=== PATIENT | male | born 1960 | race Caucasian/White ===

== ENCOUNTER 2017-05-07 19:14 | Emergency (ER) | payer BC ==
[2017-05-08 00:16] VITALS: BP 137/86
[2017-05-09] MEDS ORDERED: MOT600 GT (00:14)
[2017-05-09] MEDS ORDERED: VALIUM2 MG (00:14)
== END 2017-05-08 00:16 | disposition home or self-care (01) ==
LOC: ED 19:14
DX: M54.5 Low back pain (principal); E11.9 Type 2 diabetes mellitus without complications
CPT/HCPCS: J1885

== ENCOUNTER 2017-05-08 16:23 | Inpatient (IN) | payer BC ==
[~2017-05-08] VITALS: Ht 177.8 cm; Wt 111.1 kg
[2017-05-09] VITALS (7 sets, daily range): BP systolic 122–158; BP diastolic 66–84
[2017-05-09] MEDS ORDERED: MOT600 GT (00:14)
[2017-05-09] MEDS ORDERED: VALIUM2 MG (00:14)
[2017-05-09 00:48] LABS: MAGNESIUM 2.1 mg/dL (1.8-2.4); PHOSPHOROUS 4.2 mg/dL (2.5-4.9); T3 TOTAL 1.52 ng/mL
[2017-05-09 00:52] LABS: BASOPHIL % 0.3 % (0-2); PLATELET COUNT 245 x10^3mcL (130-400); RED CELL DISTRIBUTION WIDTH 13.9 % (11.5-14.5)
[2017-05-09 00:57] LABS: CHOLESTEROL/HDL RATIO 5.6; FREE T4 1.14 ng/dL (0.76-1.46); FREE THYROXINE INDEX 3.1 ug/dL (1.4-4.5)
[2017-05-09 01:16] LABS: ALBUMIN 3.8 g/dL (3.4-5.0); ALKALINE PHOSPHATASE 63 U/L (46-116); ALT/SGPT 58 U/L (16-63); AST/SGOT 24 U/L (15-37); BILIRUBIN TOTAL 0.44 mg/dL (0.20-1.00); CALCIUM 9.1 mg/dL (8.5-10.1); CARBON DIOXIDE 26.7 mmol/L (21-32); CHLORIDE SERUM 106 mmol/L (98-107); CREATININE SERUM 1.1 mg/dL (0.7-1.3); GFR1 > 60 mL/min; GLUCOSE SERUM 105 mg/dL (74-106); POTASSIUM SERUM 3.9 mmol/L (3.5-5.1); SODIUM SERUM 141 mmol/L (136-145); TOTAL PROTEIN, SERUM 7.7 g/dL (6.4-8.2)
[2017-05-10 06:22] VITALS: BP 135/78
[2017-05-10 07:16] LABS: BASOPHIL % 0.3 % (0-2); PLATELET COUNT 235 x10^3mcL (130-400); RED CELL DISTRIBUTION WIDTH 13.9 % (11.5-14.5)
[2017-05-10 07:31] LABS: ALBUMIN 3.4 g/dL (3.4-5.0); CALCIUM 8.9 mg/dL (8.5-10.1); CARBON DIOXIDE 27.9 mmol/L (21-32); CHLORIDE SERUM 105 mmol/L (98-107); GFR1 > 60 mL/min; GLUCOSE SERUM 95 mg/dL (74-106); POTASSIUM SERUM 4.4 mmol/L (3.5-5.1); SODIUM SERUM 140 mmol/L (136-145)
[2017-05-10 09:21] VITALS: BP 125/72
[2017-05-10 13:36] VITALS: BP 131/82
[2017-05-10 16:45] VITALS: BP 125/79
[2017-05-10 17:47] VITALS: BP 158/80
[2017-05-10 21:31] VITALS: BP 139/83
[2017-05-11 06:03] VITALS: BP 138/84
[2017-05-11 06:14] LABS: BASOPHIL % 0.4 % (0-2); PLATELET COUNT 247 x10^3mcL (130-400); RED CELL DISTRIBUTION WIDTH 13.8 % (11.5-14.5)
[2017-05-11 06:38] LABS: CARBON DIOXIDE 28.1 mmol/L (21-32); CHLORIDE SERUM 104 mmol/L (98-107); CREATININE SERUM 1.1 mg/dL (0.7-1.3); GFR1 > 60 mL/min; GLUCOSE SERUM 101 mg/dL (74-106); POTASSIUM SERUM 5.2 mmol/L (3.5-5.1); SODIUM SERUM 139 mmol/L (136-145)
[2017-05-11 09:36] VITALS: BP 145/76
[2017-05-11 14:03] VITALS: BP 119/77
[2017-05-11 17:12] VITALS: BP 127/78
[2017-05-11 21:57] VITALS: BP 147/75
[2017-05-12 05:10] VITALS: BP 123/69
[2017-05-12 06:12] LABS: BASOPHIL % 0.3 % (0-2); PLATELET COUNT 264 x10^3mcL (130-400); RED CELL DISTRIBUTION WIDTH 13.8 % (11.5-14.5)
[2017-05-12 06:37] LABS: CALCIUM 8.9 mg/dL (8.5-10.1); CARBON DIOXIDE 27.4 mmol/L (21-32); CHLORIDE SERUM 103 mmol/L (98-107); CREATININE SERUM 1.1 mg/dL (0.7-1.3); GFR1 > 60 mL/min; GLUCOSE SERUM 129 mg/dL (74-106); MAGNESIUM 2.5 mg/dL (1.8-2.4); PHOSPHOROUS 4.7 mg/dL (2.5-4.9); POTASSIUM SERUM 5.1 mmol/L (3.5-5.1); SODIUM SERUM 139 mmol/L (136-145)
[2017-05-12 08:59] VITALS: BP 150/84
[2017-05-12 13:08] VITALS: BP 147/81
[2017-05-12] MEDS ORDERED: ZES10 PO (13:57)
[2017-05-12] MEDS ORDERED: NEU100 PO (13:58)
[2017-05-12] MEDS ORDERED: NEU300 PO (13:59)
[2017-05-12 14:01] VITALS: BP 147/81
[2017-05-12] MEDS ORDERED: ROBAXIN-750750 MG PO (14:01)
== END 2017-05-12 16:45 | disposition home or self-care (01) | DRG 551 ==
LOC: ED 16:23 → DU 23:27
PROVIDERS: Family Medicine Sports Medicine; ADMIT Family Medicine
DX: M47.9 Spondylosis, unspecified (principal); N17.0 Acute kidney failure with tubular necrosis; E44.1 Mild protein-calorie malnutrition; M54.5 Low back pain; R73.03 Prediabetes; I10 Essential (primary) hypertension; E02 Subclinical iodine-deficiency hypothyroidism; F12.10 Cannabis abuse, uncomplicated; Z68.35 Body mass index [BMI] 35.0-35.9, adult; Z87.891 Personal history of nicotine dependence; Z91.14 Patient's other noncompliance with medication regimen; E11.9 Type 2 diabetes mellitus without complications; E66.9 Obesity, unspecified
CPT/HCPCS: 83880; 84439; J1100; J1170; J1885; J2270; J2543; J2800; J7030; J7512; Q0092; Q0162; Q9967